=== PATIENT | female | born 1980 | race Caucasian/White ===

== ENCOUNTER 2020-08-27 06:00 | Day surgery (SDC) | payer OTHER ==
[2020-08-27] VITALS (10 sets, daily range): BP systolic 95–114; BP diastolic 52–73
[~2020-08-27] VITALS: Ht 160 cm; Wt 53.1 kg
[~2020-08-27 06:00] MED LIST: SULFAMETHOXAZO1 EAC1 ORAL
[2020-08-27] MEDS ORDERED: ceFAZolin sod 1 GM in NS 55 ML IVPB ONE (07:00)
[2020-08-27] MEDS ORDERED: NS Irrig 1000ml ONE (07:30)
[2020-08-27] MEDS ORDERED: LR 1000ml ONE (07:30)
[2020-08-27] MEDS ORDERED: Sterile Water Irrig 1000ml IRRIG ONE (07:30)
--- NOTE | 2020-08-27 07:37 | Pre-Procedure Note/Attestation ---
Pre-Procedure Note/Attestation Complete Prior to Procedure Planned Procedure: not applicable Procedure Narrative: Hysteroscopy, D&C polypectomy Indications for Procedure Pre-Operative Diagnosis: uterine polyps Attestation I attest that I discussed the nature of the procedure; its benefits; risks and complications; and alternatives (and the risks and benefits of such alternatives), prior to the procedure, with the patient (or the patient's legal account executive sales representative). I attest that, if there was a reasonable possibility of needing a blood transfusion, the patient (or the patient's legal account executive sales representative) was given the [facility] standardized written summary, pursuant to the [place] Blood Safety Act ([place] Health and Safety Code # 1645, as amended). I attest that I re-evaluated the patient just prior to the surgery and that there has been no change in the patient's H&P, except as documented below: Carlie Omer MD Aug 27, 2020 07:37
[2020-08-27] MEDS ORDERED: DiphenhydrAMINE 50mg/ml Inj IVP PRN (07:45)
[2020-08-27] MEDS ORDERED: Tylenol #3 tab (300mg/30mg) ORAL PRN (07:45)
[2020-08-27] MEDS ORDERED: HYDROmorphone 1mg/ml Carpuject SUBQ PRN (07:45)
[2020-08-27] MEDS ORDERED: HYDROcodone/Acetamin 5/325 tab ORAL PRN (07:45)
[2020-08-27] MEDS ORDERED: Metoclopramide 10mg/2ml Inj IVP PRN (07:45)
[2020-08-27] MEDS ORDERED: fentaNYL 100 mcg/2 mL IV ONE (07:46)
[2020-08-27] MEDS ORDERED: Lidocaine 1% MPF 10mg/ml 5ml ONE (07:51)
[2020-08-27] MEDS ORDERED: Ketorolac 30mg Inj ONE (07:52)
--- NOTE | 2020-08-27 10:06 | Anethesia Preoperative Eval ---
Anesthesia Pre-op PMH/ROS General Date of Evaluation: Aug 27, 2020 Time of Evaluation: 07:00 ASA Score: ASA 1 Mallampati Score Class I : Soft palate, uvula, fauces, pillars visible Class II: Soft palate, uvula, fauces visible Class III: Soft palate, base of uvula visible Class IV: Only hard plate visible Mallampati Classification: Class I Allergies: Coded Allergies: MILK (Verified Allergy, Intermediate, 08/26/20) ABDOMINAL PAIN Wheat (Verified Allergy, Intermediate, 08/26/20) ABDOMINAL PAIN Patient NPO?: Yes Anesthesia Pre-op Phys. Exam Physician Exam Last Vital Signs Date Time Temp Pulse Resp B/P (MAP) Pulse Ox O2 Delivery O2 Flow Rate FiO2 08/27/20 09:25 98.0 62 15 106/71 100 Room Air 08/27/20 08:40 6 Airway Exam Mallampati Score: Class I Anesthesia Pre-op A/P Labs Urine Test Test 08/27/20 06:10 Urine HCG, Qualitative Negative (NEGATIVE) Keegan Conti MD Aug 27, 2020 10:06
--- NOTE | 2020-08-27 10:07 | Immediate Post-Op Evaluation ---
Immediate Post-Op Evalulation Immediate Post-Op Evalulation Procedure: D & C Date of Evaluation: Aug 27, 2020 Time of Evaluation: 10:06 Nausea: No Vomiting: No Keegan Conti MD Aug 27, 2020 10:07
[2020-08-27] MEDS ORDERED: D5 1/2NS 1,000 ML IV SCH (12:00)
--- NOTE | 2020-08-31 23:37 | Brief Operative Note ---
Immediate Post Operative Note Operative Note Pre-op Diagnosis: uterine polyps Procedure: hysteroscopy dilation and curettage polypectomy Post-op Diagnosis: same Surgeon: marah Anesthesiologist: Gallito Anesthesia: general Specimen: yes - endometrial contents /polyp and ecc Complications: none Condition: stable Fluids: crystalloid Estimated Blood Loss: minimal Drains: none Implant(s) used?: No Carlie Omer MD Aug 31, 2020 23:37
--- NOTE | 2020-09-01 00:30 | Operative Note - Dictated ---
DATE OF OPERATION: 08/27/2020 PREOPERATIVE DIAGNOSES: Menometrorrhagia, uterine polyps. POSTOPERATIVE DIAGNOSES: Menometrorrhagia, uterine polyps. PROCEDURE: D and C, hysteroscopy, polypectomy. SURGEON: Carlie Omer MD AUTOMATION CONSULTANT: None. ANESTHESIA: General endotracheal. ANESTHESIOLOGIST: Keegan Conti MD ESTIMATED BLOOD LOSS: Minimal. PROCEDURE IN DETAIL: After ensuring informed consent, patient was taken to the operating room, where general anesthesia was induced. Patient was sterilely prepped and draped. Weighted speculum was placed in the vagina. Cervix was grasped with a tenaculum and dilated to 8 Hegar dilator easily. Hysteroscope was placed inside the uterine cavity. Uterine cavity was distended with normal saline. There were two polyps observed. The polyps were easily removed with polyp forceps and fractional curettage was performed. Specimens were sent to pathology. All instruments were removed from the vagina. Excellent hemostasis was assured. Patient was taken to the recovery area, breathing on her own, and in stable condition. Carlie Omer M.D. DR: CHRIS JOB#: [id number] CC:
== END 2020-08-27 10:55 | disposition home or self-care (01) ==
LOC: SUR 06:00
DX: N92.1 Excessive and frequent menstruation with irregular cycle (principal); N84.0 Polyp of corpus uteri; Z91.011 Allergy to milk products; Z91.018 Allergy to other foods
CPT/HCPCS: 58558; 81025; 94003; J1885; J2405; J2704; J3010; J7030; J7120; U0002; 94150